=== PATIENT | female | born 1955 | race Hispanic/Latino ===

== ENCOUNTER 2017-06-03 09:44 | Inpatient (IN) | payer BC ==
[2017-06-03 09:55] VITALS: BMI 23.6
[2017-06-03] MEDS ORDERED: Sodium Chloride 0.9% 1,000 ML IV STA (10:23)
[2017-06-03] MEDS ORDERED: Morphine 4 mg/ml ISec ONE (10:52)
[2017-06-03 11:05] LABS: BASO # 0.01 K/mm3 (0.0-2.0); BASO % 0.1 % (0.0-3.0); EOS % 0.1 % (1.5-5.0); GRAN # 7.91 (1.4-6.5); GRAN % 82.6 % (50.0-68.0); HEMOGLOBIN 11.9 g/dL (12.0-16.0); LYMPH # 1.1 (1.2-3.4); LYMPH % 11.6 % (22.0-35.0); MEAN CELL VOLUME 93.4 fl (80.0-105.0); MEAN CORPUSCULAR HEMOGLOBIN 31.6 pg (25.0-35.0); MEAN CORPUSCULAR HGB CONC 33.9 g/dl (31.0-37.0); MEAN PLATELET VOLUME 9.7 fl (7.0-11.0); MONO # 0.5 (0.1-0.6); MONO % 5.6 % (1.0-6.0); RBC 3.76 10^6/uL (3.5-6.1); RED CELL DISTRIBUTION WIDTH 14.2 % (11.5-14.5); URINE BILIRUBIN NEGATIVE (NEGATIVE); URINE BLOOD NEGATIVE (NEGATIVE); URINE GLUCOSE (UA) NEGATIVE (NEGATIVE); URINE LEUKOCYTE ESTERASE NEGATIVE Leu/uL (NEGATIVE); URINE PROTEIN NEGATIVE mg/dL (<30 mg/dL); URINE UROBILINOGEN 0.2 E.U./dL (<1 E.U./dL); WHITE BLOOD COUNT 9.6 10^3/ul (4.5-11.0)
[2017-06-03 11:06] LABS: URINE APPEARANCE CLEAR (CLEAR); URINE COLOR YELLOW (YELLOW)
[2017-06-03 11:10] LABS: ALB/GLOB RATIO 1.4 (1.1-1.8); ALBUMIN 4.3 g/dL (3.0-4.8); ALT/SGPT 41 U/L (7-56); AST/SGOT 61 U/L (14-36); BLOOD UREA NITROGEN 13 mg/dL (7-21); CALCIUM 9.7 mg/dL (8.4-10.5); GFR AFRICAN-AMERICAN > 60; GFR NON-AFRICAN AMERICAN > 60; LIPASE 42 U/L (23-300)
[2017-06-03 11:14] LABS: PARTIAL THROMBOPLASTIN TIME 24.4 Seconds (25.1-36.5); PROTHROMBIN TIME 11.5 SECONDS (9.4-12.5)
--- NOTE | 2017-06-03 11:44 | ED PDOC ---
Arrival/HPI - General Chief Complaint: Trauma Time Seen by Provider: 06/03/17 10:18 Historian: Patient - History of Present Illness Narrative History of Present Illness (Text): 06/03/17 11:44 62-year-old female presents today with a 2 day history of left-sided rib and left-sided upper abdominal pain status post fall. Patient states 2 nights ago she got up to use the bathroom and stumbled and fell hitting the left side of her face on the corner of a vanity and then hitting into another item causing injury to the left side of the ribs in the abdomen. Patient states since then she was having severe left-sided rib pain and abdominal pain with nausea. Patient states she's had decreased appetite. She denies urinary symptoms. She is complaining of slight headache. She is complaining of swelling and tenderness to the left orbit. Patient denies fevers or chills. He denies bladder or bowel incontinence. Denies numbness weakness or tingling in the extremities. No other complaints Time/Duration: Other (2 night ago) Symptom Onset: Sudden Symptom Course: Unchanged Quality: Aching, Throbbing Past Medical History - Provider Review Nursing Documentation Reviewed: Yes - Travel History Have you recently traveled outside [place] w/in the past 3 mons?: No - Infectious Disease Hx of Infectious Diseases: None - Cardiac Other/Comment: Syncopal episode Few wks Ago 11/05 Had EKG,Stress Test Negative - Pulmonary Hx Asthma: Yes - Neurological Hx Seizures: Yes - HEENT Hx HEENT Disorder: No - Renal Hx Renal Disorder: No - Endocrine/Metabolic Hx Endocrine Disorders: No - Hematological/Oncological Hx Hepatitis C: Yes - Integumentary Hx Dermatological Disorder: No - Musculoskeletal/Rheumatological Hx Falls: Yes Hx Fractures: Yes (Rt.Tibia,Fibia.L. Fx.Knee Cap) - Gastrointestinal Hx Gall Bladder Disease: Yes - Genitourinary/Gynecological Hx Genitourinary Disorders: No - Psychiatric Hx Psychophysiologic Disorder: No Hx Substance Use: No - Surgical History Hx Cholecystectomy: Yes (2012) - Anesthesia Hx Anesthesia: Yes Hx Anesthesia Reactions: No Hx Malignant Hyperthermia: No - Suicidal Assessment Feels Threatened In Home Enviroment: No Family/Social History - Physician Review Nursing Documentation Reviewed: Yes Family/Social History: Unknown Family HX Smoking Status: Never Smoked Hx Alcohol Use: Yes (Wine) Hx Substance Use: No Allergies/Home Meds Allergies/Adverse Reactions: Allergies meperidine [From Demerol] Allergy (Verified 06/03/17 09:55) ANAPHYLAXIS Home Medications: Home Meds Medication Instructions Recorded Confirmed ALPRAZolam HALF TABLET [Xanax HALF 0 mg PO PRN PRN 06/03/17 06/03/17 TABLET] Calcium Phosphate Trib/Vit D3 1 each PO DAILY 06/03/17 06/03/17 [Calcium + Vitamin D3 Gummies] Zolpidem [Ambien] 0 mg PO PRN PRN 06/03/17 06/03/17 Review of Systems - Review of Systems Constitutional: absent: Fatigue, Fevers Eyes: Eye Pain. absent: Photophobia ENT: absent: Sinus Congestion Respiratory: absent: SOB, Cough Cardiovascular: absent: Chest Pain, Palpitations, Syncope Gastrointestinal: Abdominal Pain, Nausea, Appetite Changes. absent: Constipation, Diarrhea, Vomiting Genitourinary Female: absent: Dysuria, Frequency, Hematuria Musculoskeletal: Arthralgias (left rib pain), Back Pain (left flank pain). absent: Neck Pain Skin: absent: Rash, Pruritis Neurological: Headache. absent: Dizziness Psychiatric: absent: Anxiety, Depression Physical Exam Vital Signs Reviewed: Yes Vital Signs Temp Pulse Resp BP Pulse Ox 06/03/17 16:17 85 16 131/72 96 06/03/17 13:50 97.8 F 85 20 120/68 98 06/03/17 12:17 98.6 F 82 20 127/58 L 99 06/03/17 10:06 97.7 F 79 16 151/92 H 98 06/03/17 09:55 97.9 F 76 20 151/92 H 98 Temperature: Afebrile Blood Pressure: Hypertensive Pulse: Regular Respiratory Rate: Normal Appearance: Positive for: Well-Appearing, Non-Toxic, Comfortable Pain Distress: None Mental Status: Positive for: Alert and Oriented X 3 - Systems Exam Head: Present: Tenderness (left orbit; there is periorbital edema, ecchymosis, + ttp over superior, lateral and inferior orbit; ), Swelling, Ecchymosis. No: Abrasion, Laceration Pupils: Present: PERRL Extroacular Muscles: Present: EOMI. No: Entrapment Conjunctiva: Present: Normal Ears: Present: Normal, NORMAL TM Mouth: Present: Moist Mucous Membranes Nose (Internal): Present: Normal Inspection Neck: Present: Normal Range of Motion. No: MIDLINE TENDERNESS, Paraspinal Tenderness Respiratory/Chest: Present: Clear to Auscultation, Good Air Exchange, Tender to Palpation (+ ttp over left lateral lower ribs, no edema, no erythema, no ecchymosis; + ttp over left lower posterior ribs.). No: Respiratory Distress, Accessory Muscle Use, Wheezes, Rhonchi, Tachypneic Cardiovascular: Present: Regular Rate and Rhythm. No: Murmurs Abdomen: Present: Tenderness (+ LUQ tenderness), Guarding. No: Distention, Peritoneal Signs, Rebound Back: Present: Normal Inspection, Midline Tenderness (+ minimal ttp over thoracic spine and left sided paraspinal region), Paraspinal Tenderness. No: CVA Tenderness Upper Extremity: Present: Normal Inspection, Normal ROM Lower Extremity: Present: Normal Inspection, Normal ROM Neurological: Present: GCS=15, Speech Normal Skin: Present: Warm, Dry, Normal Color. No: Rashes Psychiatric: Present: Alert, Oriented x 3 Medical Decision Making ED Course and Treatment: 06/03/17 11:51 62yr old female with head injury, rib injury, and abdominal pain after fall 2 nights ago. vitals stable. pt alert and oriented; pt comfortable at rest. morphine given for pain cbc wnl cmp wnl pt/inr wnl ptt; wnl ua; ketones, no blood pt reassessment; after morphine; pt with slight improvement in pain; ribs left with pa chest; + t7 t8 compression fractures maxillofacial ct; FINDINGS: NASAL BONES: The nasal bones are intact. ORBITS: No evidence of orbital fracture. The globes are symmetric there is mild left periorbital soft tissue swelling. PARANASAL SINUSES/ MASTOIDS: Status post bilateral endoscopic sinus surgery, mild polypoid mucosal thickening in the left maxillary sinus. There is also scattered mucosal thickening in the ethmoid air cells. MAXILLA: No acute maxillofacial fracture. MANDIBLE/ TEMPOROMANDIBULAR JOINTS: No acute fracture. The temporomandibular joints are normally located. SKULL BASE: Unremarkable. TEMPORAL BONES: Middle ears and mastoid grossly unremarkable. OTHER FINDINGS: None. IMPRESSION: No acute nasal bone, orbital or maxillofacial fracture. Mild left periorbital soft tissue swelling. The globes are normal in appearance. head ct FINDINGS: HEMORRHAGE: No intracranial hemorrhage. BRAIN: Wolff-white matter differentiation is preserved. There is no mass, mass effect or abnormal extra-axial fluid collection. There is no territorial infarction. VENTRICLES: The ventricles are normal in size, shape and configuration. CALVARIUM: Unremarkable. PARANASAL SINUSES: There is a small retention cyst/polyp in the left anterior maxillary sinus. The remaining included paranasal sinuses are clear. MASTOID AIR CELLS: Predominantly clear. OTHER FINDINGS: None. IMPRESSION: No acute intracranial abnormality. ct chest/abd/pelvis: FINDINGS: CT CHEST WITH CONTRAST: LUNGS: There is some linear scarring at the right lung base. MEDIASTINUM: Unremarkable. Normal caliber aorta and pulmonary arterial trunk. No aortic dissection. Normal size heart. LYMPH NODES: Unremarkable. PLEURA: Unremarkable. No pneumothorax. No pleural fluid. BONES: Unremarkable. OTHER FINDINGS: None. CT ABDOMEN AND PELVIS: LIVER: Unremarkable. No gross lesion or ductal dilatation. GALLBLADDER AND BILE DUCTS: Gallbladder removed PANCREAS: Unremarkable. No gross lesion or ductal dilatation. SPLEEN: Unremarkable. ADRENALS: Unremarkable. No mass. KIDNEYS AND URETERS: Unremarkable. No hydronephrosis. No solid mass. VASCULATURE: Unremarkable. No aortic aneurysm. BOWEL: Unremarkable. No obstruction. No gross mural thickening. APPENDIX: Normal appendix. PERITONEUM: Unremarkable. No free fluid. No free air. LYMPH NODES: Unremarkable. No enlarged lymph nodes. BLADDER: Unremarkable. REPRODUCTIVE: Unremarkable. BONES: Compression fractures are seen in the lower thoracic and upper lumbar spine, age uncertain OTHER FINDINGS: None. IMPRESSION: No acute findings pt with continued pain; addition morphine and toradol added; all results discussed with patient in depth. 06/03/17 16:[address] ramirez; accepts admission for intractable back pain with multiple compression fractures and difficulty with ambulation. Impression: Intractable back pain, multiple compression fractures of the thoracic spine Admit to [facility] Reassessment Condition: Unchanged - Lab Interpretations Lab Results: 06/03/17 10:45 06/03/17 10:45 Lab Results 06/03/17 10:45: PT 11.5, INR 1.00, APTT 24.4 L 06/03/17 10:45: WBC 9.6, RBC 3.76, Hgb 11.9 L, Hct 35.1 L, MCV 93.4, MCH 31.6, MCHC 33.9, RDW 14.2, Plt Count 188, MPV 9.7, Gran % 82.6 H, Lymph % (Auto) 11.6 L, Cross % (Auto) 5.6, Eos % (Auto) 0.1 L, Baso % (Auto) 0.1, Gran # 7.91 H, Lymph # (Auto) 1.1 L, Cross # (Auto) 0.5, Eos # (Auto) 0.0, Baso # (Auto) 0.01 06/03/17 10:45: Sodium 139, Potassium 3.6, Chloride 100, Carbon Dioxide 29, Anion Gap 13, BUN 13, Creatinine 0.6 L, Est GFR ( Amer) > 60, Est GFR ( Non-Af Amer) > 60, Random Glucose 119 H, Calcium 9.7, Total Bilirubin 0.9, AST 61 H, ALT 41, Alkaline Phosphatase 75, Total Protein 7.4, Albumin 4.3, Globulin 3.1, Albumin/Globulin Ratio 1.4, Lipase 42 06/03/17 10:45: Urine Color Yellow, Urine Appearance Clear, Urine pH 6.0, Ur Specific [place] 1.010, Urine Protein Negative, Urine Glucose (UA) Negative, Urine Ketones Trace H, Urine Blood Negative, Urine Nitrate Negative, Urine Bilirubin Negative, Urine Urobilinogen 0.2, Ur Leukocyte Esterase Negative - RAD Interpretation Radiology Orders: 06/03/17 10:22 CHEST,ABD,PEL W/IV CONT ONLY [CT] Stat HEAD W/O CONTRAST [CT] Stat RIBS LEFT & PA CHEST [RAD] Stat 06/03/17 10:23 MAXILLOFACIAL W/O CONTRAST [CT] Stat - Medication Orders Current Medication Orders: Docusate Sodium (Colace) 200 mg PO DAILY MARY Meloxicam (Mobic) 15 mg PO DAILY MARY Morphine Sulfate (Morphine) 5 mg IVP Q6H PRN PRN Reason: Pain, moderate (4-7) Discontinued Medications Docusate Sodium (Colace) 100 mg PO DAILY MARY Sodium Chloride (Sodium Chloride 0.9%) 1,000 mls @ 999 mls/hr IV .Q1H1M STA Stop: 06/03/17 11:23 Last Admin: 06/03/17 10:52 Dose: 999 mls/hr eMAR Start Stop Document 06/03/17 10:52 SZA (Rec: 06/03/17 10:53 TIFF [email or web address]) Intravenous Solution Start Date 06/03/17 Start Time 10:45 End Date 06/03/17 End time 11:45 Total Infusion Time 60 Ketorolac Tromethamine (Toradol) 30 mg IVP STAT STA Stop: 06/03/17 15:08 Last Admin: 06/03/17 15:31 Dose: 30 mg MAR Pain Assessment Document 06/03/17 15:31 MS (Rec: 06/03/17 15:34 MS [id number]) Pain Reassessment Is this a pain reassessment? No Sleep Is patient sleeping during reassessment? No Presence of Pain Presence of Pain Yes Pain Scale Used Pain Scale Used Numeric Location Left, Right or Bilateral Left Pain Location Body Site Face Shoulder Leg Description Description Constant Intensity of Pain at present 9 Pain Behavior Moaning Aggravating Factors Changing Position IVP Administration Document 06/03/17 15:31 MS (Rec: 06/03/17 15:34 MS [id number]) Charges for Administration # of IVP Administrations 1 Morphine Sulfate (Morphine) 2 mg IVP STAT STA Stop: 06/03/17 10:46 Last Admin: 06/03/17 10:55 Dose: Morphine Sulfate (Morphine) 2 mg IVP STAT STA Stop: 06/03/17 13:05 Last Admin: 06/03/17 13:14 Dose: 2 mg MAR Pain Assessment Document 06/03/17 13:14 TIFF (Rec: 06/03/17 13:14 TIFF [email or web address]) Pain Reassessment Is this a pain reassessment? No Sleep Is patient sleeping during reassessment? No Presence of Pain Presence of Pain Yes Pain Scale Used Pain Scale Used Numeric Description Description Intermittent Intensity of Pain at present 5 IVP Administration Document 06/03/17 13:14 TIFF (Rec: 06/03/17 13:14 TIFF [email or web address]) Charges for Administration # of IVP Administrations 1 Ondansetron HCl (Zofran Inj) 4 mg IVP STAT STA Stop: 06/03/17 10:25 Last Admin: 06/03/17 10:53 Dose: 4 mg IVP Administration Document 06/03/17 10:53 TIFF (Rec: 06/03/17 10:53 TIFF [email or web address]) Charges for Administration # of IVP Administrations 1 Disposition/Present on Arrival - Present on Arrival Any Indicators Present on Arrival: No History of DVT/PE: No History of Uncontrolled Diabetes: No Urinary Catheter: No History of Decub. Ulcer: No History Surgical Site Infection Following: None - Disposition Have Diagnosis and Disposition been Completed?: Yes Diagnosis: Intractable back pain, Compression fracture of thoracic vertebra Disposition: HOSPITALIZED Disposition Time: 16:24 Patient Plan: Admission Patient Problems: Current Active Problems Problem Status Onset Compression fracture of thoracic vertebra Acute Intractable back pain Acute Condition: FAIR
[2017-06-03] MEDS ORDERED: Iohexol 350 MG/100 ML VIAL ONE (12:21)
--- NOTE | 2017-06-03 13:14 | CT ---
PROCEDURE: CT HEAD WITHOUT CONTRAST. HISTORY: Fall 2 nights ago, head injury COMPARISON: None available. TECHNIQUE: Axial computed tomography images were obtained through the head/brain without intravenous contrast. Radiation dose: Total exam DLP = 800.01 MGy-cm. This CT exam was performed using one or more of the following dose reduction techniques: Automated exposure control, adjustment of the mA and/or kV according to patient size, and/or use of iterative reconstruction technique. FINDINGS: HEMORRHAGE: No intracranial hemorrhage. BRAIN: Wolff-white matter differentiation is preserved. There is no mass, mass effect or abnormal extra-axial fluid collection. There is no territorial infarction. VENTRICLES: The ventricles are normal in size, shape and configuration. CALVARIUM: Unremarkable. PARANASAL SINUSES: There is a small retention cyst/polyp in the left anterior maxillary sinus. The remaining included paranasal sinuses are clear. MASTOID AIR CELLS: Predominantly clear. OTHER FINDINGS: None. IMPRESSION: No acute intracranial abnormality.
--- NOTE | 2017-06-03 13:19 | CT ---
PROCEDURE: CT Chest, Abdomen and Pelvis with intravenous contrast HISTORY: left flank pain, left upper abdominal pain s/p fal COMPARISON: None. TECHNIQUE: IV dose administered: 100 cc of Omni 350 Radiation dose: Total exam DLP = 560 mGy-cm. This CT exam was performed using one or more of the following dose reduction techniques: Automated exposure control, adjustment of the mA and/or kV according to patient size, and/or use of iterative reconstruction technique. FINDINGS: CT CHEST WITH CONTRAST: LUNGS: There is some linear scarring at the right lung base. MEDIASTINUM: Unremarkable. Normal caliber aorta and pulmonary arterial trunk. No aortic dissection. Normal size heart. LYMPH NODES: Unremarkable. PLEURA: Unremarkable. No pneumothorax. No pleural fluid. BONES: Unremarkable. OTHER FINDINGS: None. CT ABDOMEN AND PELVIS: LIVER: Unremarkable. No gross lesion or ductal dilatation. GALLBLADDER AND BILE DUCTS: Gallbladder removed PANCREAS: Unremarkable. No gross lesion or ductal dilatation. SPLEEN: Unremarkable. ADRENALS: Unremarkable. No mass. KIDNEYS AND URETERS: Unremarkable. No hydronephrosis. No solid mass. VASCULATURE: Unremarkable. No aortic aneurysm. BOWEL: Unremarkable. No obstruction. No gross mural thickening. APPENDIX: Normal appendix. PERITONEUM: Unremarkable. No free fluid. No free air. LYMPH NODES: Unremarkable. No enlarged lymph nodes. BLADDER: Unremarkable. REPRODUCTIVE: Unremarkable. BONES: Compression fractures are seen in the lower thoracic and upper lumbar spine, age uncertain OTHER FINDINGS: None. IMPRESSION: No acute findings
--- NOTE | 2017-06-03 13:24 | RAD ---
PROCEDURE: Radiographs of the Chest and Left Ribs. HISTORY: left rib pain s/p fall COMPARISON: None available. TECHNIQUE: Frontal radiograph of the chest and multiple oblique radiographs of the left ribs were obtained. FINDINGS: LEFT RIBS: No fracture or focal lesion visualized. LUNGS: Clear. PLEURA: No pneumothorax or pleural fluid. CARDIOVASCULAR: Normal sized heart. No pulmonary vascular congestion. OTHER FINDINGS: Compression fractures are seen at T7 and T8. The age of these fractures is uncertain. IMPRESSION: Compression fractures at T7 and T8, age uncertain. No evidence of rib fracture
--- NOTE | 2017-06-03 13:29 | CT ---
PROCEDURE: CT MAXILLOFACIAL BONES WITHOUT CONTRAST HISTORY: fall 2 nights ago, left eye pain COMPARISON: None TECHNIQUE: Contiguous axial CT images of the maxillofacial bones were obtained. Coronal and sagittal reformats were generated. Radiation dose: Total exam DLP = 687.83 mGy-cm. This CT exam was performed using one or more of the following dose reduction techniques: Automated exposure control, adjustment of the mA and/or kV according to patient size, and/or use of iterative reconstruction technique. FINDINGS: NASAL BONES: The nasal bones are intact. ORBITS: No evidence of orbital fracture. The globes are symmetric there is mild left periorbital soft tissue swelling. PARANASAL SINUSES/ MASTOIDS: Status post bilateral endoscopic sinus surgery, mild polypoid mucosal thickening in the left maxillary sinus. There is also scattered mucosal thickening in the ethmoid air cells. MAXILLA: No acute maxillofacial fracture. MANDIBLE/ TEMPOROMANDIBULAR JOINTS: No acute fracture. The temporomandibular joints are normally located. SKULL BASE: Unremarkable. TEMPORAL BONES: Middle ears and mastoid grossly unremarkable. OTHER FINDINGS: None. IMPRESSION: No acute nasal bone, orbital or maxillofacial fracture. Mild left periorbital soft tissue swelling. The globes are normal in appearance.
--- NOTE | 2017-06-03 16:49 | CARD ---
APPROVED REPORT EKG Measurement Heart [id number] <Conclusion> Normal sinus rhythm RSR' or QR pattern in V1 suggests right ventricular conduction delay
--- NOTE | 2017-06-03 19:35 | HP ---
HISTORY OF PRESENT ILLNESS: The patient is 62-year-old female, who came to Emergency Room for intractable back pain. The patient fell yesterday at home, thought she is going to get better, but when she woke up this morning, her pain got worse, complained of pain in the left lower rib area, left upper abdomen. The patient states 2 days ago when she got up at night time to use the bathroom, she lost her balance and she fell and hit her left side of her face, the corner of her dressing table and also hit her left side of the chest. Complained of abdominal pain with nausea, no history of headache, complained of decreased appetite, no urinary symptoms, no history of fever or chills. PAST MEDICAL HISTORY: Significant for right tib-fib and knee surgery. She does have history of hepatitis and history of anxiety disorder, hepatitis C. ALLERGIES: SHE IS ALLERGIC TO MEPERIDINE. MEDICATIONS AT HOME: She is on zolpidem 10 mg at bedtime, Xanax as needed and she takes vitamin D with calcium. REVIEW OF SYSTEMS: Significant for left-sided chest pain, mid back pain, lower back pain. PHYSICAL EXAMINATION: GENERAL: She is awake, alert, oriented, communicative. VITAL SIGNS: She is afebrile, pulse 85, respirations 20, blood pressure 120/68. LUNGS: Bilateral good airflow. No rhonchi or crackle. HEART: S1 and S2 audible. ABDOMEN: Soft, left upper quadrant discomfort. NEUROLOGICAL: She is awake, alert, oriented, communicative. LABORATORY DATA: WBC is 9.6, hemoglobin 11.9, hematocrit 35.1, platelets 188. PT 11.5, INR 1.00. Chemistry: Sodium 139, potassium 3.6, chloride 100, CO2 of 29, BUN 13, creatinine 0.6, blood sugar of 119. LFTs are within normal limits. Urine analysis has trace ketones. She has maxillofacial CT scan done that shows no acute nasal bone, orbital or maxillofacial fracture, however, there is a periorbital soft tissue swelling. X-ray of the ribs shows no fracture. CT scan of the head is unremarkable. However, a compression fracture at T7 and T8 on x-ray of chest is appreciated. CT scan of the abdomen and pelvis is unremarkable. ASSESSMENT AND PLAN: 1. Status post fall. 2. Periorbital contusion. 3. Compression fracture of T7 and T8. 4. History of anxiety disorder. 5. Intractable back pain. PLAN: The patient will be admitted for pain control. We will give her analgesics and Dr. Deandre Phan will be consulted. I will order for MRI of the thoracic spine and start her on laxative. We will follow up this patient in a.m. Adela Petersen MD
[2017-06-03] MEDS: Morphine 5 MG/ML SYRINGE IVP PRN (20:44)
--- NOTE | 2017-06-03 21:24 | CP.PCM.PN ---
Subjective - Date & Time of Evaluation Date of Evaluation: 06/03/17 Time of Evaluation: 21:21 - Subjective Subjective: S:Seen because she requested a sleeping pill. States that she takes ambien at home. Did not sleep for 2 days. No other complaints. No headache, no dizziness. Medical record was reviewed. O: Last Vital Signs 3 Temp 97.8 F 06/03/17 13:50 Pulse 88 06/03/17 18:48 Resp 16 06/03/17 18:48 BP 113/81 06/03/17 18:48 Pulse Ox 99 06/03/17 18:48 Awake,alert. Left periorbital echymosis present. LUNGS:Normal breathing pattern. NEURO:Speech normal. A: Insomnia. P:Ambien 5 mg PO x 1. Objective - Vital Signs/Intake and Output Vital Signs (last 24 hours): Temp Pulse Resp BP Pulse Ox 97.8 F 88 16 113/81 99 06/03/17 13:50 06/03/17 18:48 06/03/17 18:48 06/03/17 18:48 06/03/17 18:48 - Medications Medications: Current Medications Docusate Sodium (Colace) 200 mg PO DAILY MARY Meloxicam (Mobic) 15 mg PO DAILY MARY Morphine Sulfate (Morphine) 5 mg IVP Q6H PRN PRN Reason: Pain, moderate (4-7) Last Admin: 06/03/17 20:44 Dose: 5 mg - Labs Labs: PT 11.5 SECONDS (9.4-12.5) 06/03/17 10:45 INR 1.00 (0.93-1.08) 06/03/17 10:45 APTT 24.4 Seconds (25.1-36.5) L 06/03/17 10:45
[2017-06-04] MEDS: Morphine 5 MG/ML SYRINGE IVP PRN ×3 (05:50→23:24)
[2017-06-04 07:25] LABS: BASO # 0.02 K/mm3 (0.0-2.0); BASO % 0.3 % (0.0-3.0); EOS # 0.1 (0.0-0.7); EOS % 0.7 % (1.5-5.0); GRAN # 5.45 (1.4-6.5); GRAN % 73.2 % (50.0-68.0); HEMOGLOBIN 10.8 g/dL (12.0-16.0); LYMPH # 1.4 (1.2-3.4); LYMPH % 18.8 % (22.0-35.0); MEAN CELL VOLUME 94.5 fl (80.0-105.0); MEAN CORPUSCULAR HEMOGLOBIN 31.2 pg (25.0-35.0); MEAN PLATELET VOLUME 9.8 fl (7.0-11.0); MONO # 0.5 (0.1-0.6); RBC 3.46 10^6/uL (3.5-6.1); RED CELL DISTRIBUTION WIDTH 14.2 % (11.5-14.5); WHITE BLOOD COUNT 7.4 10^3/ul (4.5-11.0)
[2017-06-04 07:56] LABS: ALB/GLOB RATIO 1.3 (1.1-1.8); ALBUMIN 3.7 g/dL (3.0-4.8); ALT/SGPT 65 U/L (7-56); AST/SGOT 90 U/L (14-36); BLOOD UREA NITROGEN 12 mg/dL (7-21); CALCIUM 8.9 mg/dL (8.4-10.5); GFR AFRICAN-AMERICAN > 60; GFR NON-AFRICAN AMERICAN > 60
[2017-06-04] MEDS ORDERED: Morphine 4 mg/ml ISec IVP STA (10:54)
[2017-06-04] MEDS ORDERED: Gadodiamide 287 MG/ML VIAL (15ML) IV ONE ×2 (11:23→13:30)
--- NOTE | 2017-06-04 13:51 | MRI ---
PROCEDURE: MR THORACIC SPINE WITH AND WITHOUT CONTRAST HISTORY: back pain COMPARISON: None available. TECHNIQUE: Multiecho multiplanar sequences were performed through the thoracic spine with and without the use of intravenous contrast. 20 cc of Omniscan FINDINGS: ALIGNMENT: Normal thoracic spinal alignment. Normal thoracic kyphosis. VERTEBRA: Multiple compression fractures are seen in the mid thoracic spine. There is enhancement in the T7 and T5 vertebral bodies consistent with an acute compression injury. The T6 and T8 compression fractures appear to be chronic. MARROW: There is also marrow edema at T5 and T7 corresponding to the areas of enhancement and consistent with acute fractures PARASPINAL SOFT TISSUES: Unremarkable. CORD: Unremarkable thoracic cord. No volume loss, signal abnormality or syrinx. DISCS: No disc herniation, spinal canal stenosis, or neuroforaminal narrowing. ENHANCEMENT: No abnormal enhancement. OTHER FINDINGS: None. IMPRESSION: Multiple compression fractures are seen in the mid thoracic spine. There is enhancement in the T7 and T5 vertebral bodies consistent with an acute compression injury. The T6 and T8 compression fractures appear to be chronic
--- NOTE | 2017-06-04 16:39 | PN ---
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 She states she has right foot dystonia, she lost balance and she fell hitting her left face and the back, sustained thoracic fracture, going for MRI to further evaluate. PHYSICAL EXAMINATION: GENERAL: She is awake, alert, oriented, communicative. VITAL SIGNS: She is afebrile, pulse 84, respirations 20, blood pressure 117/79. LUNGS: Bilateral good airflow. No rhonchi or crackles. HEART: S1, S2 audible. ABDOMEN: Soft, nontender. No rebound, no guarding. She has palpable discomfort in mid thoracic area. LABORATORY DATA: WBC 7.4, hemoglobin 10.8, hematocrit 32.7, platelets of 177. Chemistry: Sodium 138, potassium 3.8, chloride 103, CO2 of 28, BUN 12, creatinine 0.6, blood sugar of 88, AST 90, ALT 65. MRI of the thoracic spine is done, result not available yet. X-ray of rib series shows compression fracture at T7 and T8 . PLAN: Patient is going for MRI, will be evaluated by Dr. Deandre Phan. In the meantime, we will give her analgesic as needed. Adela Petersen MD
[2017-06-05] MEDS: Morphine 5 MG/ML SYRINGE IVP PRN ×3 (05:33→18:08)
--- NOTE | 2017-06-05 21:57 | PN ---
DATE: SUBJECTIVE: The patient is 62 years old, seen and examined. Still complained of mid back pain. Complained of feeling nauseous after getting pain medications. She states Percocet does not help. PHYSICAL EXAMINATION: VITAL SIGNS: She is afebrile, pulse 86, respirations 20, blood pressure 110/77. LUNGS: Bilateral good airflow. No rhonchi or crackle. HEART: S1 and S2 audible. ABDOMEN: Soft. Nontender. No rebound. No guarding. NEUROLOGIC: She is awake, alert, oriented, communicative. LABORATORY EXAM: WBC 7.4, hemoglobin 10.8, hematocrit 32.7, platelet of 171. Chemistry: Sodium 138, potassium 3.8, chloride 103, CO2 of 28, BUN 12, creatinine 0.6, blood sugar of 88, AST 90, ALT 65. Urinalysis is unremarkable. She had MRI of thoracic spine done that shows multiple compression fractures in the mid thoracic spine. There is enhancement in the T7 and T5 vertebral body consistent with acute compression. T6 and T8 compression fractures appeared to be chronic. ASSESSMENT: 1. Status post fall. 2. Left periorbital contusion. 3. Multiple compression fractures, T5 and T7 seemed to be acute. 4. Anxiety disorder. PLAN: The patient will continue same analgesic, antiemetic and the patient is scheduled to have kyphoplasty done on . Adela Petersen MD
[2017-06-06] MEDS: Morphine 5 MG/ML SYRINGE IVP PRN ×4 (00:47→19:18)
[2017-06-06] MEDS ORDERED: Magnesium Citrate Oral SOL (300 ml) PO ONE (14:29)
--- NOTE | 2017-06-06 21:19 | PN ---
DATE: SUBJECTIVE: The patient is 62 years old, seen and examined, lying in bed, seems to be comfortable. Still has mid back to lower back pain. Complained of constipation. PHYSICAL EXAMINATION: VITAL SIGNS: The patient is afebrile, pulse 86, respirations 20, blood pressure 110/77. LUNGS: Bilateral fair airflow. No rhonchi or crackle. HEART: S1 and S2 audible. ABDOMEN: Soft. Nontender. No rebound. No guarding. NEUROLOGIC: The patient is awake and alert, able to communicate, able to move all extremity. No focal deficit. ASSESSMENT: 1. Status post fall. 2. Left periorbital contusion. 3. T5 and T7 compression fracture. 4. Anemia. 5. Abnormal liver function tests. PLAN: We will give the patient dose of . Give her 1 dose of magnesium citrate and she is scheduled for kyphoplasty. Adela Petersen MD
[2017-06-07] MEDS: Morphine 5 MG/ML SYRINGE IVP PRN ×2 (01:11→07:10)
--- NOTE | 2017-06-07 09:12 | CON ---
DATE: 06/04/2017 TIME: 4:50 p.m. CHIEF COMPLAINT/HISTORY OF PRESENT ILLNESS: Ms. Benitez is a healthy 62-year-old female who had a serious fall at home and has been experiencing severe thoracic back pain since that time. Her MRI revels multiple mid thoracic compression fractures involving T4-T8. T5 and T7 revels edema suggesting they are acute. T4 and T8 and T6 appeared to be old healed fractures. Ms. Benitez's pain is severe and she would like to have something done. She is not able to work. It does not improve. She denies bowel or bladder symptoms. She denies any leg symptoms. PAST MEDICAL HISTORY: Fairly unremarkable. She has a history of anxiety. She has a history of hepatitis C. She had a right tib/fib fracture in the past. She has known significant cardiovascular history. IMPRESSION AND PLAN: I discussed all options with Ms. Benitez this including kyphoplasty. She would like something performed to alleviate her pain. The risks, benefits, and alternatives were discussed. We will schedule the kyphoplasty. Deandre Phan MD
[2017-06-07] MEDS ORDERED: Lidocaine 2% Inj (20ml) ONE (13:24)
[2017-06-07] MEDS ORDERED: Midazolam 2 MG/2 ML VIAL ONE ×3 (13:24→16:05)
[2017-06-07] MEDS ORDERED: Iodixanol 320 MG/ML 100 ML BOTTLE IV ONE (13:46)
[2017-06-07] MEDS ORDERED: DiphenhydrAMINE 50 mg/ml Inj ONE (16:15)
[2017-06-07] MEDS ORDERED: Sodium Chloride 0.45% 1,000 ML IV SCH (16:45)
[2017-06-07] MEDS ORDERED: Morphine 4 mg/ml ISec ONE (17:07)
[2017-06-07] MEDS: Morphine 4 mg/ml ISec IVP PRN ×2 (17:10→22:10)
--- NOTE | 2017-06-07 18:55 | VASCULAR ---
PROCEDURE: 1. T7 kyphoplasty 2. T5 kyphoplasty HISTORY: Severe, refractory thoracic back pain. Recent fall. Unresponsive to bed rest and analgesics. Multiple thoracic compression fractures. Acute T5 and T7 compression fractures. PHYSICIAN(S): Deandre Phan MD. TECHNIQUE: he relative risks and indications of the procedure were explained to the patient and informed written consent obtained. The patient was placed prone on the arteriography table and the thoracolumbar spine prepped and draped in the usual sterile fashion. Conscious sedation and monitoring were provided throughout the procedure by a nurse. The T5 and T7 vertebral bodies were carefully localized under fluoroscopy. First the T7 vertebral body was addressed. Via the right pedicle a bone needle was advanced into the posterior T7 vertebral body. 10 mm bone balloon was inflated to approximately 3 cc in the T7 vertebral body. Crossed the midline. The balloon was removed and approximately 1.5 cc of barium -impregnated PMMA cement placed in the T7 vertebral body. No extravasation was seen. Next the T5 vertebral body was addressed. Via left pedicle, a bone needle was placed in the posterior aspect of the T5 vertebral body. A 10 mm balloon was advanced into the mid T5 vertebral body. It was inflated with approximately 3 cc of dilute contrast. The balloon was removed and 2.0 cc of barium -impregnated PMM a cement placed in the T5 vertebral body. No extravasation was noted. The bone needles were removed and bandages placed at the entry sites. The patient tolerated the procedure well. IMPRESSION: 1. Successful T7 kyphoplasty. 2. Successful T5 kyphoplasty.
[2017-06-08] MEDS: Morphine 4 mg/ml ISec IVP PRN ×2 (03:24→10:12)
--- NOTE | 2017-06-08 08:45 | PN ---
DATE: 06/07/2017 SUBJECTIVE: The patient is a 62-year-old, seen and examined, still has back pain upon certain movements. Denies any nausea or vomiting. Scheduled for kyphoplasty today. PHYSICAL EXAMINATION: GENERAL: She is awake, alert, oriented and communicative. VITAL SIGNS: She is afebrile, pulse 68, respirations 20, blood pressure 112/78. LUNGS: Bilateral good airflow. No rhonchi or crackle. HEART: S1, S2 audible. ABDOMEN: Soft, nontender. No rebound, no guarding. NEUROLOGICAL: She is awake, alert, oriented and communicative. ASSESSMENT: 1. Status post fall. 2. Left periorbital contusion. 3. Compression fracture in the mid thoracic spine and acute is T5 and T7. PLAN: Scheduled for kyphoplasty today. Start patient on IV fluids. After kyphoplasty give her analgesics and will follow. If patient remains stable, she will be discharged in a.m. Adela Petersen MD
[2017-06-08 11:36] VITALS: BP 127/82; PULSE 74; RESP 21; TEMP 97.8; O2SAT 91
[2017-06-08] MEDS ORDERED: TraMADol/Apap 37.5/325 mg Tab PO ONE (12:00)
--- NOTE | 2017-06-08 13:04 | DS ---
HISTORY OF PRESENT ILLNESS: The patient is 62 years old, who came to emergency room because of intractable back pain with back pain. The patient states previously night she fell and because of her previous dystonia of her left foot secondary to athletic injury, sometimes she loses balance and fell, hitting her left face causing periorbital contusion. The patient was seen by Dr. Deandre Phan, recommended for kyphoplasty, that was done yesterday for T5 and T7. PHYSICAL EXAMINATION: GENERAL: She is awake, alert, oriented, communicative. VITAL SIGNS: She is afebrile, pulse 74, respirations 21, blood pressure 127/82. LUNGS: Bilateral good airflow. No rhonchi or crackle. HEART: S1 and S2 audible. No murmur. ABDOMEN: Soft. Nontender. No rebound. No guarding. NEUROLOGIC: She is awake, alert, oriented, communicative, ambulatory. ASSESSMENT: 1. Status post fall. 2. Left periorbital contusion. 3. T5 and T7 compression fracture, status post kyphoplasty. PLAN: The patient is going to be discharged home today either on Ultracet or Percocet as tolerated and we will follow up the patient in a week. Adela Petersen MD
--- NOTE | 2017-06-09 16:05 | DS ---
HISTORY OF PRESENT ILLNESS: The patient is a 62-year-old, seen and examined, underwent kyphoplasty yesterday, still has same . PHYSICAL EXAMINATION: VITAL SIGNS: Patient is afebrile, pulse 74, respirations 21, blood pressure 127/82. LUNGS: Bilateral fair airflow. No rhonchi or crackle. HEART: S1 and S2 audible. ABDOMEN: Soft, nontender. No rebound. No guarding. NEUROLOGIC: She is awake, alert, oriented, communicative, ambulatory. Procedure site seems to be . ASSESSMENT 1. Status post fall. 2. History of left foot dystonia secondary to many, many years ago. 3. Left periorbital contusion. 4. Compression fracture of T5 and T7. 5. She has kyphoplasty. 6. Anxiety disorder. 7. . PLAN: Patient will be on Ultracet. If she does not have side effects, she will be discharged on Ultracet and she will follow with the PMD. Patient does not like the effect of Percocet, she likes morphine but that is not available in . She will be discharged on Ultracet she tolerates. Spoke to the nurse practitioner. Adela Petersen MD
== END 2017-06-08 17:36 | disposition home or self-care (01) | DRG 517 ==
LOC: ED 09:44 → ERH 16:17 → 5RNO 19:11
PROVIDERS: ADMIT Internal Medicine; ATTEND Internal Medicine
PROC: 0PS43ZZ Reposition Thoracic Vertebra, Percutaneous Approach (ICD-10-PCS; principal; 2017-06-07)
PROC: 0PU43JZ Supplement Thoracic Vertebra with Synthetic Substitute, Percutaneous Approach (ICD-10-PCS; 2017-06-07)
DX: S22.059A Unspecified fracture of T5-T6 vertebra, initial encounter for closed fracture (principal); S22.069A Unspecified fracture of T7-T8 vertebra, initial encounter for closed fracture; S00.12XA Contusion of left eyelid and periocular area, initial encounter; F41.9 Anxiety disorder, unspecified; B19.20 Unspecified viral hepatitis C without hepatic coma; G47.00 Insomnia, unspecified; D64.9 Anemia, unspecified; K59.00 Constipation, unspecified; W18.39XA Other fall on same level, initial encounter; Y93.01 Activity, walking, marching and hiking; Y92.009 Unspecified place in unspecified non-institutional (private) residence as the place of occurrence of the external cause